=== PATIENT | male | born 1995 | race Caucasian/White ===

== ENCOUNTER → 2017-10-08 | Outpatient (CLI) | payer OTHER | END | disposition home or self-care (01) | LOC: EMPHLTH 11:17 | PROVIDERS: ATTEND Internal Medicine | DX: Z02.1 Encounter for pre-employment examination (principal) | CPT/HCPCS: 86706; 86735; 86762; 86765; 86787 ==

== ENCOUNTER 2018-01-23 20:04 | Emergency (ER) | payer OTHER ==
[~2018-01-23] VITALS: Ht 180.3 cm; Wt 113.6 kg
[2018-01-23 20:21] VITALS: BP 139/79
[2018-01-23] MEDS ORDERED: IBUPROFEN 800 MG TABLET PO ONE (20:30)
== END 2018-01-23 21:36 | disposition home or self-care (01) ==
LOC: EMS 20:05 → EEVIPCON 20:05 → EMS 21:36
DX: S60.022A Contusion of left index finger without damage to nail, initial encounter (principal); W23.0XXA Caught, crushed, jammed, or pinched between moving objects, initial encounter; Y93.89 Activity, other specified; Y92.89 Other specified places as the place of occurrence of the external cause; Y99.8 Other external cause status
CPT/HCPCS: 99284